=== PATIENT | male | born 1965 | race Caucasian/White ===

== ENCOUNTER 2017-12-13 15:00 | Emergency (ER) | payer OTHER ==
[2017-12-13] MEDS ORDERED: ONDANSETRON 4 MG/2 ML VIAL IVP ONE (15:42)
[2017-12-13] MEDS ORDERED: NS 1,000 ML IV ONE (15:42)
[2017-12-13] MEDS ORDERED: HYDROmorphONE/DILAUDID 1 MG/ML INJ IVP ONE (15:42)
--- NOTE | 2017-12-13 15:56 | EDPHY ---
H & P Time Seen by Provider: 12/13/17 15:53 HPI/ROS: CHIEF COMPLAINT: Vomiting, abdominal pain HISTORY OF PRESENT ILLNESS: This patient is a 52 y/o male complaining of abdominal pain and vomiting. He states "my stomach has been wreaking havoc on me". He has had similar symptoms every few months for the past year and a half. These episodes of vomiting generally last several days. Last Saturday12/06/17, he began vomiting intermittently. He was in [place] at that time, and evaluated by a physician in [place] and placed on antibiotics. He returned to [place] on Saturday. After eating some Super Bowl snacks on Saturday, he vomited again. The patient felt well Saturday and for several days following. evening, he vomited again after dinner and has continued to vomit since then. He has not measured a fever , but has felt diaphoretic. Associated with generalized abdominal pain, worse on the right. He denies diarrhea, hematochezia, hematemesis, melena, dizziness, or other associated symptoms. REVIEW OF SYSTEMS: A 10 point review of systems was performed and is negative with the exception of the elements mentioned in the history of present illness. Past Medical/Surgical History: Ongoing episodes of abdominal pain and vomiting for 1.5 years. Social History: moderate alcohol use and daily marijuana use. Denies cigarette use. . Lives in [place]. Smoking Status: Current some day smoker Physical Exam: General Appearance: Alert, pale, speaking very softly Eyes: Pupils equal and round, no conjunctival pallor or injection ENT, Mouth: Mucous membranes moist Neck: Normal inspection Respiratory: Lungs are clear to auscultation Cardiovascular: Regular rate and rhythm Gastrointestinal: soft, mild diffuse tenderness, worse on the right, no peritoneal signs Neurological: A&O, nonfocal exam Skin: Warm and dry, no rash Extremities: Nontender, no pedal edema Psychiatric: Mood and affect normal Constitutional: Initial Vital Signs Temperature (C) 36.5 C 12/13/17 15:08 Heart Rate 104 H 12/13/17 15:08 Respiratory Rate 20 12/13/17 15:08 Blood Pressure 155/94 H 12/13/17 15:08 O2 Sat (%) 97 12/13/17 15:08 O2 Delivery Mode Room Air O2 (L/minute) 2 Allergies/Adverse Reactions: No Known Allergies Allergy (Unverified 12/13/17 15:44) Home Medications: Medication Instructions Recorded Ondansetron Odt [Zofran Odt 4 mg 4 mg PO Q4 PRN #6 tab 12/13/17 (*)] Medical Decision Making - Diagnostics Imaging: Discussed imaging studies w/ national dedicated truck driver Radiologist ED Course/Re-evaluation: 52 y/o male presents with recurrent abdominal pain and vomiting, most recently beginning yesterday evening. Clinical history concerning for cyclic vomiting syndrome. Exam reveals generalized mild abdominal tenderness. IV established. Plan for labs including CBC, chemistries, liver, lipase. Administered 1L IV NS and 4mg IV Zofran for symptom relief. 1mg IV Dilaudid administered for pain relief by ED RN. 16:45 - I reassessed this patient. He feels completely back to normal. Abdomen is soft and nontender. Right upper quadrant ultrasound ordered because of elevated bilirubin. US negative for acute findings. 18:20 - Reassessed patient. He continues to feel well. Abdomen remains soft and nontender. d/w pt possible CVS. Plan to d/c home in good condition with referral to GI for further evaluation. Return precautions discussed. He is comfortable with this plan. Differential Diagnosis: Differential diagnosis includes though it is not limited to appendicitis, cholecystitis, diverticulitis, pyelonephritis, bowel perforation, small bowel obstruction. - Data Points Laboratory Results: Laboratory Results 12/13/17 15:53 12/13/17 15:53 Medications Given: Discontinued Medications Hydromorphone HCl (Dilaudid) 1 mg IVP EDNOW ONE Stop: 12/13/17 15:43 Last Admin: 12/13/17 15:47 Dose: 1 mg Sodium Chloride (Ns) 1,000 mls @ 0 mls/hr IV ONCE ONE PRN Reason: Wide Open Stop: 12/13/17 15:43 Last Admin: 12/13/17 15:46 Dose: 1,000 mls Ondansetron HCl (Zofran) 4 mg IVP EDNOW ONE Stop: 12/13/17 15:43 Last Admin: 12/13/17 15:46 Dose: 4 mg Departure - Departure Disposition: Home, Routine, Self-Care Clinical Impression: Vomiting Condition: Good Instructions: Ondansetron (By mouth), Acute Nausea and Vomiting (ED) Additional Instructions: 1. Clear liquids for 24 hours. 2. Advance diet as tolerated. I suggest the BRAT diet to start: bananas, rice, applesauce and toast. 3. Return for worsening symptoms, persistent vomiting, abdominal pain, any concerns. 4. Follow up with gastroenterology for further evaluation. We have referred you to our GI specialist nutrition internship. 5. Take Zofran as prescribed as needed for nausea. Referrals: Edwar Sandhu MD [Medical Doctor] - As per Instructions Prescriptions: Ondansetron Odt [Zofran Odt 4 mg (*)] 4 mg PO Q4 PRN #6 tab PRN Reason: Nausea Report Scribed for: Hawa Forbes Report Scribed by: Sheila Gifford Date of Report: 12/13/17 Time of Report: 15:55 Physician Review and Approval Statement: 12/13/17 15:55 Portions of this note were transcribed by a veterinary medical officer. I personally performed a history, physical exam, medical decision making, and confirmed accuracy of information the transcribed note.
[2017-12-13 16:31] LABS: PLATELET COUNT 324 10^3/uL (150-400)
[2017-12-13 17:04] VITALS: O2SAT 97
[2017-12-13 18:33] VITALS: BP 134/84; PULSE 78; RESP 18; TEMP 98.2
== END 2017-12-13 18:43 | disposition home or self-care (01) ==
DX: R11.10 Vomiting, unspecified (principal); F17.200 Nicotine dependence, unspecified, uncomplicated
CPT/HCPCS: 96374; J1170; J2405